=== PATIENT | female | born 1970 | race American Indian/Alaskan Native ===

== ENCOUNTER 2016-10-24 17:47 | Emergency (ER) | payer MEDICAID, OTHER ==
[2016-10-24 18:01] VITALS: BP 115/59
[2016-10-24] MEDS ORDERED: Diphtheria,Pertussis(Acell),Tetanus Vaccine 0.5 ML SDV IM ONE (19:31)
[2016-10-24] MEDS ORDERED: Lidocaine 1% 30 ML SDV INJECT ONE (19:31)
--- NOTE | 2016-10-24 19:35 | EDM.PDOC ---
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 Right 2-Index finger Pain Score (Numeric/FACES): 5 - Related Data Allergies Allergy/AdvReac Type Severity Reaction Status Date / Time amitriptyline Allergy unknown Verified 11/17/14 22:12 calcium carbonate Allergy unknown Verified 11/17/14 22:12 [From Ban-Acid] duloxetine HCl Allergy Change Verified 11/17/14 22:12 [From Cymbalta] Mental Status prednisone Allergy unknown Verified 11/17/14 22:12 pseudoephedrine Allergy unknown Verified 11/17/14 22:12 pseudoephedrine HCl Allergy Tachycardia Verified 11/17/14 22:15 [From Actifed] triprolidine HCl Allergy Tachycardia Verified 11/17/14 22:15 [From Actifed] plastic Allergy Rash Uncoded 11/17/14 22:12 Home Meds: Home Meds Gabapentin [Gabapentin] 2 tab PO TID 06/23/14 [History] traMADol HCl [Tramadol HCl] 2 tab PO TID 06/23/14 [History] Acetaminophen [Tylenol Extra Strength] 1,000 mg PO ASDIRECTED PRN 11/17/14 [ History] Past Medical History Other HEENT History: wears glasses Cardiovascular History: Reports: None Respiratory History: Reports: None Gastrointestinal History: Reports: None Genitourinary History: Reports: None [employer]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 Musculoskeletal History: Reports: Back Pain, Chronic Neurological History: Reports: None Psychiatric History: Reports: None Endocrine/Metabolic History: Reports: None Hematologic History: Reports: None Immunologic History: Reports: None Oncologic (Cancer) History: Reports: None Dermatologic History: Reports: None - Infectious Disease History Infectious Disease History: Reports: None - Past Surgical History Head Surgeries/Procedures: Reports: None Social & Family History - Family History Family Medical History: Noncontributory - Tobacco Use Smoking Status *Q: Current Every Day Smoker Years of Tobacco use: 30 Packs/Tins Daily: 0.5 Second Hand Smoke Exposure: No - Caffeine Use Caffeine Use: Reports: Coffee, Soda - Alcohol Use Days Per Week of Alcohol Use: 0 - Recreational Drug Use Recreational Drug Use: No ED ROS GENERAL - Review of Systems Review Of Systems: ROS reveals no pertinent complaints other than HPI. ED EXAM, SKIN/RASH Exam: See Below Exam Limited By: No Limitations General Appearance: Alert, WD/WN, No Apparent Distress Ears: Hearing Grossly Normal Throat/Mouth: Normal Voice, No Airway Compromise Head: Atraumatic Neck: Non-Tender, Full Range of Motion Respiratory/Chest: No Respiratory Distress Cardiovascular: Regular Rate, Rhythm GI/Abdominal: Soft, Non-Tender Extremities: Other (right index 1/2 lac, ROM nl, NV wnl) Neurological: Alert, Oriented, Normal Cognition, Normal Gait, No Motor/Sensory Deficits Psychiatric: Normal Affect, Normal Mood Skin: Warm, Dry Location, Skin: Upper Extremity, Right Lymphatic: No Adenopathy ED SKIN PROCEDURES - Laceration/Wound Repair Right Finger Lac/wound length in cm: 1 (dorsal right index) Appearance: subcutaneous, linear, clean Distal NVT: neuro & vascular intact, no tendon injury Anesthetic Type: local Local anesthesia - Lidocaine (Xylocaine): 1% plain Local anesthetic volume: 5cc Skin prep: chlorhexidine (hibiciens) Saline irrigation (cc's): 20 Exploration/Debridement/Repair: wound explored, in a bloodless field, no foreign material found Closed with: sutures Suture size: 3-0 Suture type: interrupted Sterile dressing applied: provider Tetanus status addressed: Yes Complications: No Course - Vital Signs Last Recorded V/S: Last Vital Signs Temp 37.2 C 10/24/16 18:00 Pulse 74 10/24/16 18:00 Resp 18 10/24/16 18:00 BP 115/59 L 10/24/16 18:00 Pulse Ox 94 L 10/24/16 18:00 - Orders/Labs/Meds Orders: Active Orders 24 hr Category Date Time Status Vaccines to be Administered [RC] PER UNIT ROUTINE Care 10/24/16 19:31 Active Meds: Medications Discontinued Medications Generic Name Dose Route Start Last Admin Trade Name Freq PRN Reason Stop Dose Admin Hydrocodone Bitart/Acetaminophen 1 tab 10/24/16 20:00 [place] 325-10 Mg PO 10/24/16 20:01 ONETIME ONE Cephalexin 500 mg 10/24/16 20:00 Keflex PO 10/24/16 20:01 ONETIME ONE Diphtheria/Tetanus/Acell Pertussis 0.5 ml 10/24/16 19:31 10/24/16 19:35 Adacel IM 10/24/16 19:32 0.5 ml .ONCE ONE Administration Lidocaine HCl 30 ml 10/24/16 19:31 10/24/16 19:37 Xylocaine-Mpf 1% INJECT 10/24/16 19:32 30 ml ONETIME ONE Administration Departure - Departure Time of Disposition: 20:02 Disposition: Home, Self-Care 01 Condition: good Clinical Impression: Finger laceration Qualifiers: Encounter type: initial encounter Qualified Code(s): S61.219A - Laceration without foreign body of unspecified finger without damage to nail, initial encounter - Discharge Information Instructions: Stitches, Steve, or Adhesive Wound Closure, [id number] Forms: ED Department Discharge Additional Instructions: 1) keep wound clean dry covered 2) wound check 2 days 3) suture removal 10 days rx given; keflex 250mg qid x 40 vicodin 5/325mg bid prn x 6 - My Orders Last 24 Hours: My Active Orders 10/24/16 19:31 Vaccines to be Administered [RC] PER UNIT ROUTINE - Assessment/Plan Last 24 Hours: My Active Orders 10/24/16 19:31 Vaccines to be Administered [RC] PER UNIT ROUTINE }
[2016-10-24] MEDS ORDERED: Acetaminophen/HYDROcodone 325-10 MG Tab PO ONE (20:00)
[2016-10-24] MEDS ORDERED: Cephalexin 500 MG Cap PO ONE (20:00)
== END 2016-10-24 20:13 | disposition home or self-care (01) ==
LOC: DL.ED 17:47
DX: S61.210A Laceration without foreign body of right index finger without damage to nail, initial encounter (principal); F17.210 Nicotine dependence, cigarettes, uncomplicated; Z88.8 Allergy status to other drugs, medicaments and biological substances; Z79.899 Other long term (current) drug therapy; Z23 Encounter for immunization; X58.XXXA Exposure to other specified factors, initial encounter
CPT/HCPCS: 12001; 90471; 90715; 96372; 99283; A9270

== ENCOUNTER 2021-02-21 18:50 | Emergency (ER) | payer MEDICAID, OTHER ==
--- NOTE | 2021-02-21 19:29 | EDM.PDOC ---
ED HPI GENERAL MEDICAL PROBLEM - General Chief Complaint: Back Pain or Injury Stated Complaint: FELL / INJURED BACK Time Seen by Provider: 02/21/21 19:23 Source of Information: Reports: Patient - History of Present Illness INITIAL COMMENTS - FREE TEXT/NARRATIVE: Pt is here for a right side and back injury that occurred shorty before arrival. She has chronic pain and is under a contract, but when she was trying to get her dog in the house, he pulled back and she fell into the corner of the house on her right side. She is having trouble taking deep breaths and feels like her side is already swelling. She called her family to come bring her to the ER. They brought her some ice, which she has been using while en route to the ER. She does note pain on deep breathing. No head injury or LOC. No other pain or injury noted. Middle Back Pain Score (Numeric/FACES): 8 - Related Data Allergies Allergy/AdvReac Type Severity Reaction Status Date / Time amitriptyline Allergy unknown Verified 12/18/18 04:57 calcium carbonate Allergy unknown Verified 12/18/18 04:57 [From Ban-Acid] duloxetine HCl Allergy Change Verified 12/18/18 04:57 [From Cymbalta] Mental Status prednisone Allergy unknown Verified 12/18/18 04:57 pseudoephedrine Allergy unknown Verified 12/18/18 04:57 pseudoephedrine HCl Allergy Tachycardia Verified 12/18/18 04:57 [From Actifed] triprolidine HCl Allergy Tachycardia Verified 12/18/18 04:57 [From Actifed] plastic Allergy Rash Uncoded 02/21/21 19:10 Home Meds: Home Meds Gabapentin 2 tab PO TID 06/23/14 [History] traMADol HCl [Tramadol HCl] 2 tab PO TID 06/23/14 [History] Acetaminophen [Tylenol Extra Strength] 1,000 mg PO ASDIRECTED PRN 11/17/14 [History] Past Medical History Other HEENT History: wears glasses Cardiovascular History: Reports: None Respiratory History: Reports: None Gastrointestinal History: Reports: None Genitourinary History: Reports: None [employer]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 Musculoskeletal History: Reports: Back Pain, Chronic Neurological History: Reports: None Psychiatric History: Reports: None Endocrine/Metabolic History: Reports: None Hematologic History: Reports: None Immunologic History: Reports: None Oncologic (Cancer) History: Reports: None Dermatologic History: Reports: None - Infectious Disease History Infectious Disease History: Reports: None - Past Surgical History Head Surgeries/Procedures: Reports: None GI Surgical History: Reports: Appendectomy, Cholecystectomy Female Surgical History: Reports: Hysterectomy, Salpingo-Oophorectomy Social & Family History - Family History Family Medical History: No Pertinent Family History - Tobacco Use Tobacco Use Status *Q: Current Every Day Tobacco User Years of Tobacco use: 38 Packs/Tins Daily: 1 - Caffeine Use Caffeine Use: Reports: Coffee - Recreational Drug Use Recreational Drug Use: Yes Recreational Drug Type: Reports: Marijuana/Hashish ED ROS GENERAL - Review of Systems Review Of Systems: Comprehensive ROS is negative, except as noted in HPI. ED EXAM,LOWER BACK PAIN/INJURY - Physical Exam Exam: See Below Exam Limited By: No Limitations General Appearance: Alert, WD/WN, Mild Distress (due to pain) Eye Exam: Bilateral Eye: Normal Inspection Ears: Normal External Exam Throat/Mouth: Normal Voice, No Airway Compromise Head: Atraumatic, Normocephalic Neck: Supple, Non-Tender Respiratory/Chest: No Respiratory Distress, Lungs Clear, Normal Breath Sounds, No Accessory Muscle Use, Other (tender to palpation around right side of rib cage) Cardiovascular: Normal Peripheral Pulses, Regular Rate, Rhythm, No Murmur GI/Abdominal: Soft, Non-Tender (Female) Exam: Deferred Rectal (Female) Exam: Deferred Back Exam: Decreased Range of Motion (due to pain), Other (erythema on right paraspinal area from injury) Extremities: Normal Range of Motion, Normal Capillary Refill Neurological: Alert, Normal Mood/Affect, Normal Gait, Normal Reflexes, No Motor/Sensory Deficits Psychiatric: Normal Affect, Normal Mood Skin Exam: Warm, Dry Course - Vital Signs Last Recorded V/S: Last Vital Signs Temp 99.6 F 02/21/21 19:10 Pulse 66 02/21/21 19:10 Resp 20 02/21/21 19:10 BP 143/73 H 02/21/21 19:10 Pulse Ox 98 02/21/21 19:10 - Re-Assessments/Exams Free Text/Narrative Re-Assessment/Exam: Reassured pt her xray was negative, no broken ribs seen. Encouraged pt to rest and use OTC meds and ice therapy for pain control. Advised pt she will be more sore tomorrow and that is normal. Pt verbalized understanding. 02/21/21 20:33 Departure - Departure Time of Disposition: 20:34 Disposition: Home, Self-Care 01 Condition: Good Clinical Impression: Fall Qualifiers: Encounter type: initial encounter Qualified Code(s): W19.XXXA - Unspecified fall, initial encounter - Discharge Information *PRESCRIPTION DRUG MONITORING PROGRAM REVIEWED*: Not Applicable *COPY OF PRESCRIPTION DRUG MONITORING REPORT IN PATIENT [place]: Not Applicable Instructions: Muscle Strain, [id number] Forms: ED Department Discharge Additional Instructions: Use tylenol and ibuprofen as needed for pain relief continue to ice the area regularly for pain relief. you may feel more sore tomorrow, this is normal follow up with your primary care provider in 3-5 days if pain persists or worsens Sepsis Event Note (ED) - Focused Exam Vital Signs: Vital Signs Temp Pulse Resp BP Pulse Ox 02/21/21 19:10 99.6 F 66 20 143/73 H 98
--- NOTE | 2021-02-21 20:19 | CR ---
PROCEDURE INFORMATION: Exam: XR Right Ribs with PA Chest Exam date and time: 02/21/2021 7:49 PM Age: 50 years old Clinical indication: Other: Pain; Additional info: Fall TECHNIQUE: Imaging protocol: XR Right ribs with PA chest. Views: 3 views COMPARISON: No relevant prior studies available. FINDINGS: Lungs: Unremarkable. No consolidation. Pleural spaces: Unremarkable. No pleural effusion. No pneumothorax. Heart/Mediastinum: Unremarkable. No cardiomegaly. Bones/joints: Unremarkable. IMPRESSION: No acute findings.
[2021-02-21 20:59] VITALS: BP 113/65; PULSE 70
== END 2021-02-21 20:45 | disposition home or self-care (01) ==
LOC: DL.ED 18:50
DX: S39.92XA Unspecified injury of lower back, initial encounter (principal); Z91.048 Other nonmedicinal substance allergy status; Z88.8 Allergy status to other drugs, medicaments and biological substances; Z72.0 Tobacco use; W18.39XA Other fall on same level, initial encounter
CPT/HCPCS: 71101-RT; 99283-25

== ENCOUNTER 2021-12-21 22:25 | Emergency (ER) | payer MEDICAID ==
[2021-12-22] MEDS: Amoxicillin/Clavulanate K 875-125 MG Tab PO ONE (00:18)
[2021-12-22] MEDS: Lidocaine 2% with EPINEPHrine 1:200,000 20 ML SDV INJECT ONE (00:18)
[2021-12-22 01:07] VITALS: BP 134/79; PULSE 89
== END 2021-12-22 01:05 | disposition home or self-care (01) ==
LOC: DL.ED 22:25
DX: S71.152A Open bite, left thigh, initial encounter (principal); Z88.8 Allergy status to other drugs, medicaments and biological substances; Z91.048 Other nonmedicinal substance allergy status; W54.0XXA Bitten by dog, initial encounter
CPT/HCPCS: 12001; 99283; A9270-GY

== ENCOUNTER 2021-12-28 01:10 | Emergency (ER) | payer MEDICAID ==
[2021-12-28 02:26] VITALS: BP 125/62; PULSE 70
[2021-12-28] MEDS ORDERED: Iopamidol 612 MG/ML 100 ML Bottle IVPUSH ONE (03:09)
== END 2021-12-28 05:04 | disposition home or self-care (01) ==
LOC: DL.ED 01:10
DX: S71.152A Open bite, left thigh, initial encounter (principal); S70.12XA Contusion of left thigh, initial encounter; L03.116 Cellulitis of left lower limb; F17.210 Nicotine dependence, cigarettes, uncomplicated; Z88.8 Allergy status to other drugs, medicaments and biological substances; Z91.048 Other nonmedicinal substance allergy status; W54.0XXA Bitten by dog, initial encounter
CPT/HCPCS: 36415; 73701-LT; 85025; 99284; Q9967

== ENCOUNTER 2023-12-29 02:56 | Emergency (ER) | payer MEDICAID ==
[2023-12-29] MEDS: Sodium Chloride 0.9% 1,000 ML IV ONE (03:20)
[2023-12-29] MEDS: Ondansetron 4 MG/2 ML SDV IVPUSH ONE (03:21)
[2023-12-29 03:23] LABS: BASOPHILS PERCENT AUTO 0.2 % (0.0-1.0); EOSINOPHILS PERCENT AUTO 5.6 % (1.0-3.0); HEMATOCRIT 40.9 % (37.0-47.0); HEMOGLOBIN 14.4 g/dL (12.0-16.0); MEAN CORPUSCULAR HEMOGLOBIN 31.5 pg (27.0-34.0); MEAN CORPUSCULAR HGB CONC 35.2 g/dL (33.0-35.0); MEAN CORPUSCULAR VOLUME 89.5 fL (80-100); MONOCYTES PERCENT AUTO 10.4 % (2-8); NEUTROPHILS PERCENT AUTO 34.8 % (42.2-75.2); PLATELET COUNT,PLT 295 10^3/uL (150-450); RED BLOOD CELL COUNT 4.57 10^6/uL (4.2-5.4); WHITE BLOOD CELL COUNT,WBC 8.6 10^3/uL (5.0-10.0)
[2023-12-29] MEDS: Ketorolac 30 MG/ML SDV IVPUSH ONE (03:23)
[2023-12-29] MEDS: Morphine 4 MG/ML Syringe IVPUSH ONE ×2 (03:24→04:16)
[2023-12-29 03:37] LABS: APPEARANCE,URINE CLEAR (CLEAR); BILIRUBIN,URINE NEGATIVE (NEGATIVE); COLOR,URINE YELLOW (YELLOW); GLUCOSE,URINE NEGATIVE (NEGATIVE); KETONES,URINE NEGATIVE (NEGATIVE); LEUKOCYTE ESTERASE,URINE NEGATIVE (NEGATIVE); NITRITE,URINE NEGATIVE (NEGATIVE); OCCULT BLOOD,URINE MODERATE (NEGATIVE); PROTEIN,URINE NEGATIVE (NEGATIVE); UROBILINOGEN,URINE 0.2 mg/dL (0.2-1.0)
[2023-12-29 03:43] LABS: ALBUMIN 3.8 g/dL (3.4-5.0); ANION GAP 12.6 mEq/L (7-13); BILIRUBIN TOTAL 0.5 mg/dL (0.2-1.0); BUN/CREATININE RATIO 13.4 (No establ ref range); CALCIUM 9.4 mg/dL (8.5-10.1); CREATININE 0.82 mg/dL (0.55-1.02); EST CRCL DRUG DOSING (CG) 79.12 mL/min; POTASSIUM,K 3.6 mmol/L (3.5-5.1); PROTEIN TOTAL,TP 7.5 g/dL (6.4-8.2)
[2023-12-29 03:48] LABS: BACTERIA,URINE FEW /HPF (0-FEW/HPF); EPITHELIAL CELLS,URINE FEW /HPF (NOT SEEN); MUCUS,URINE FEW /LPF (NOT SEEN); RBC,URINE 20-30 /HPF (0-5); WBC,URINE 0-5 /HPF (0-5/HPF)
[2023-12-29 03:55] VITALS: BP 128/71
[2023-12-29] MEDS: Sodium Chloride 0.9% 10 ML Syringe FLUSH PRN (04:19)
[2023-12-29 04:48] VITALS: PULSE 56
== END 2023-12-29 06:10 | disposition home or self-care (01) ==
LOC: DL.ED 02:56
DX: N20.1 Calculus of ureter (principal); Z90.710 Acquired absence of both cervix and uterus; Z90.49 Acquired absence of other specified parts of digestive tract; Z91.048 Other nonmedicinal substance allergy status; Z88.2 Allergy status to sulfonamides; Z88.8 Allergy status to other drugs, medicaments and biological substances
CPT/HCPCS: 36415; 74176; 80053; 81001; 83690; 85025; 96361; 96374; 96375; 96376; 99283; 99284-25; J1885; J2270; J2405; J3490; J7030